=== PATIENT | female | born 1985 | race Caucasian/White ===

== ENCOUNTER 2025-06-08 16:39 | Emergency (ER) | payer OTHER, SELFPAY ==
--- OUTSIDE RECORDS SUMMARY | 2004-08-19 03:30 | XMS_ITS | Continuity of Care Document ---
Demographics Address [address] [place] [address] Work Phone Home Phone Preferred Language en Marital Status Never Temple Affiliation Unknown Race Unknown Ethnic Group Unknown Author Organization [facility] Address [address] [address] [place] [address] Phone Support Name Relationship Address Phone Elsie Gomez parent [address] [place] [address] [phone] Sumaya BROWN, Derek Reyes Caregiver Unknown Un available Care Team Providers Care Help Desk Coordinator Name Role Phone Unavailable Unavailable Unavailable Allergies, Adverse Reactions, Alerts Substance Reaction Status Criticality No Known allergies Advance Directives Directive Yes / No Effective Date File Name No Information Encounters Encounter Description Practice Location Reason(s) For Visit Diagnoses Date Provider Providers Copied on Encounter [facility], [address] [address], [place], [place], [id number], tel:[phone] Pediatric [facility] No Information No Information Referring Provider: Derek Shell MD A, [address] [place], [address]. tel:[phone] Family History Family Member Type Diagnosis Age At Onset No Information Payers Payer name Insurance type Covered alliance party ID Authoriza tion(s) Blue Cross [place] [id number] Social History Type Description Quantity Date Captured Comments Sex Female Smoking Status No Information Chief Complaint And Reason For Visit No Information Reason For Referral Reason For Referral No Information History Of Present Illness Encounter Date Complaint History Of Prese nt Illness No Information Functional Status Date Functional Assessmen t No Information Instructions Date Instruction Additional Infor mation No Information Assessments Type Assessment Date No Information Patient Care Teams Name Effective Dates (start - stop) Status Members No Information
--- OUTSIDE RECORDS SUMMARY | 2004-08-19 03:30 | XMS_ITS | Continuity of Care Document ---
Demographics Address [address] [place] [address] Work Phone Home Phone Preferred Language en Marital Status Never Sabianist Affiliation Unknown Race Unknown Ethnic Group Unknown Author Organization [facility] Address [address] [address] [place] [address] Phone Support Name Relationship Address Phone Elsie Gomez parent [address] [place] [address] [phone] Sumaya BROWN, Derek Reyes Caregiver Unknown Un available Care Team Providers Care Phone Screener Name Role Phone Unavailable Unavailable Unavailable Allergies, Adverse Reactions, Alerts Substance Reaction Status Criticality No Known allergies Advance Directives Directive Yes / No Effective Date File Name No Information Encounters Encounter Description Practice Location Reason(s) For Visit Diagnoses Date Provider Providers Copied on Encounter [facility], [address] [address], [place], [place], [id number], tel:[phone] Pediatric Clinic No Information No Information Referring Provider: Derek Shell MD A, [address] [place], [address]. tel:[phone] Family History Family Member Type Diagnosis Age At Onset No Information Payers Payer name Insurance type Covered democrat ID Authoriza tion(s) Blue Cross [place] [id number] Social History Type Description Quantity Date Captured [...]
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
--- OUTSIDE RECORDS SUMMARY | 2025-04-27 08:54 | XMS_ITS | Encounter Summary ---
Author Organization [facility] Address [address] [place] [address] Care Team Providers Care Bulk Station Operator Name Role Phone Marcello Turpin M.D. Primary Care Provider [phone] Encounter Details Date Type Department Care Team (Latest Contact Info) Description 04/27/2025 8:54 AM CDT - 04/27/2025 11:59 PM CDT Hospital Encounter Department of Laboratory Medicine in [place], [place] [address] [place] [phone] Marcello Turpin M.D. [address] [place] [phone] Elevated Liver Enzyme Test Discharge Disposition: Home or Self Care Social History Tobacco Use Types Packs/Day Years Used Date Smoking Tobacco: Former Cigarettes 1.5 Q uit: 06/23/2021 Smokeless Tobacco: Never Comments:1/2 cigarette a day , if that Alcohol Use Standard Drinks/Week Comments [...] money to buy more. Never true 04/23/20 Within the past 12 months, t he [...] things needed for daily living? No 04/23/2025 [facility] Utilities Answer Date Recorded In the past 12 months has e electric, gas, oil, or water company threatened to shut off services in your home? No 04/23/2025 Housing Stability Answer Date Recorded What is your living situation today? I have a [facility] place to live 04/23/2025 Education Answer Date Recorded What is the highest level of school you have completed or the highest degree you have received? GED or equivalent Comments Unknown Sex and Gender Information Value Date Recorded Sex Assigned at Female 04/24/2021 8:16 PM CDT Legal Sex Female 7:45 AM SCOURING TRAIN OPERATOR Gender Identity Female 10/16/2020 5:31 PM SCOURING TRAIN OPERATOR Sexual Orientation Straight 10/16/2020 5: 31 PM SCOURING TRAIN OPERATOR documented as of this encounter Medications at Time of Discharge tretinoin (Retin-A) 0.025 % cream Apply 1 Application topically at bedtime. Apply to face . 45 g 3 04/27/2025 acetaminophen (TYLENOL) 500 mg tablet Take 500-1,000 mg by mouth every 4 (four) hours as needed. 09/17/2021 albuterol 90 mcg/actuation inhaler Inhale 1-2 puffs every 4 (four) hours as needed. 03/08/2021 benzoyl peroxide 2.5 % gelIndications:A cne Vulgaris Apply 1 Application topically at bedtime. Apply to face daily 60 g 2 11/10/2024 clindamycin (Cleocin T) 1 % gelIndications:A cne Vulgaris Apply 1 Application topically 2 (two) times a day. Apply to face daily 60 g 2 11/10/2024 cyclobenzaprine (FlexeriL) 10 mg tablet Take 1 tablet (10 mg total) by mouth at bedtime as needed for muscle spasms. 30 tablet 1 04/27/2025 [id number] -C (MoviPrep) 100-7.5-2.691 gram kit Take first half of the prep at 4pm the evening before and start second half 3 to 6 hours before and finish 2 hours prior to report time. 1 kit 06/09/2024 5 documented as of this encounter Plan of Treatment Not on file documented as of this encounter Procedures Procedure Name Priority Date/Time Associated Diagnosis Comments COMPREHENSIVE METABOLIC PANEL, S/P Routine 04/27/2025 9:01 AM CDT Elevated Liver Enzyme Test documented in this encounter Results * (ABNORMAL) Comprehensive Metabolic Panel (04/27/2025 9:01 AM CDT) Pathologist [facility] Potassium, P 4.5 3.6 - 5.2 mmol/L [...] M.D. LAB BLOOD ADD-ON Final Resul t [facility] [address] [place] [address], [place] OW[facility] [place] [address] [place] [address] documented in this encounter Visit Diagnoses Diagnosis Elevated Liver Enzyme Test documented in this encounter Additional Health Concerns Assessment Noted Time PHQ-9 Depression Total Score: 19 017 10:57 AM SCOURING TRAIN OPERATOR documented as of this encounter Care Teams Bulk Station Operator Relationship Specialty Start Date End Date Marcello Turpin M.D. NPHeather: [id number] [address] [place] [address] [place] [address] PCP - General Family Medicine 12/07/22 documented as of this encounter
--- OUTSIDE RECORDS SUMMARY | 2025-06-04 16:00 | XMS_ITS | Encounter Summary ---
Author Organization [facility] Address [address] [place] [address] Support Name Relationship Address Phone Lalo Biswas Emergency Contact [address] [place] [address] Clesherron Gomez Personal Relationship [address] [place] [address] Care Team Providers Care Head Of Sales And Marketing Name Role Phone Marcello Turpin M.D. Primary Care Provider Reason for Referral * Outpatient (Routine) - Closed Specialty Diagnoses / Procedures Referred By Contac t Referred To Contact Diagnoses Counseling Preconception Mass Ovary Procedures US Pelvis Transvaginal and Transabdominal Josefina Reeder APRN, C.N.P. [address] [place] [address] Phone: tel: fax: [facility] Region Referral ID Status Reason Start Date Expiration Date Visits Re quested Visits Authorized [id number] Closed 06/04/2025 09/04/2026 1 1 * Outpatient (Routine) - Authorized Specialty Diagnoses / Procedures Referred By Contac t Referred To Contact Obstetrics and Gynecology Diagnoses Preventive Gynecological Exam Josefina Reeder APRN, C.N.P. [address] [place] [address] Phone: tel: fax: [facility] Region Referral ID Status Reason Start Date Expiration Date V isits Requested Visits Authorized [id number] Authorized 06/04/2025 12/04/2026 1 1 Scheduling Instructions 30 min WWE Reason for Visit * Reason Comments Contraception Family planning Gynecologic Exam Yearly exam * Outpatient (Routine) - Closed Specialty Diagnoses / Procedures Referred By Contdonavon t Referred To Contact Obstetrics and Gynecology Diagnoses Preventive Gynecological Exam Marcello Turpin M.D. [address] [place] [phone] Phone: tel: fax: [facility] Referral ID Status Reason Start Date Expiration Date Visits Re quested Visits Authorized [id number] Closed 04/27/2025 10/27/2026 1 1 Encounter Details Date Type Department Care Team (Latest Contact Info) Description 06/04/2025 4:00 PM CDT Comprehensive Visit Department of Obstetrics and Gynecology in [place], [place] [address] [phone] Josefina Reeder APRN, C.N.P. [address] [phone] Preventive Gynecological Exam (Primary Dx); Abuse Tobacco Smoking; Aneurysm Abdominal Aortic Family History; Counseling Preconception; Mass Ovary; Ulcerative Colitis Unspecified Without Complications (HCC) Discharge Disposition: Home or Self Care Social History Tobacco Use Types Packs/Day Years Used Date Smoking Tobacco: Former Cigarettes 1.5 Q uit: 06/23/2021 Smokeless Tobacco: Never Alcohol Use Standard Drinks/Week Comments Yes 0 [...] things needed for daily living? No 04/23/2025 [facility] Utilities Answer Date Recorded In the past 12 months has [employer] electric, gas, oil, or water company threatened to shut off services in your home? No 04/23/2025 Housing Stability Answer Date Recorded What is your living situation today? I have a [facility] place to live 04/23/2025 Education Answer Date Recorded What is the highest level of school you have completed or the highest degree you have received? GED or equivalent Comments No Sex and Gender Information Value Date Recorded Sex Assigned at Female 04/24/2021 8:16 PM CDT Legal Sex Female 7:45 AM COMPONENT TECHNICIAN Gender Identity Female 10/16/2020 5:31 PM COMPONENT TECHNICIAN Sexual Orientation Straight 10/16/2020 5: 31 PM COMPONENT TECHNICIAN documented as of this encounter Last Filed Vital Signs Vital Sign Reading Time Taken Comments Blood Pressure 119/80 06/04/2025 3:40 PM CDT Pulse 75 06/04/2025 3:40 PM CDT Temperature - - Respiratory Rate - - Oxygen Saturation - - Inhaled Oxygen Concentration - - Weight 70 kg (154 lb 5.2 oz) 06/04/2025 3:40 PM CDT Height - - Body Mass Index 27.69 04/27/2025 8:18 AM CDT documented in this encounter Patient Instructions * Attachments The following attachments cannot be sent through Care Everywhere. * Planning documented in this encounter H&P Notes * Josefina Reeder APRN, C.N.P. - 06/04/2025 4:00 PM CDT Images from the original note were not included. DATE OF VISIT: 06/04/2025 SUBJECTIVE CHIEF COMPLAINT / REASON FOR VISIT Nettie Biswas is a 39 y.o. female who presents for evaluation of Contraception (Family planning ) and Gynecologic Exam (Yearly exam ). Patient's last menstrual period was 04/10/2025. The patient verbally consented to an audio recording of their visit to assist with the completion of documentation. History of Present Illness Mrs. Nettie Biswas is a 39 year old female who presents for a well woman exam and preconception counseling. She recently got and her , who previously had a vasectomy, is scheduled for a vasectomy reversal on August 24. She is not currently on control and has regular menstrual periods. She has not used ovulation predictor tests and is hoping to conceive naturally without in vitro fe rtilization. She has a history of very early, probable ovarian cancer in 2019, for which she underwent oral chemotherapy. She retains both ovaries. She reports no problems with her ovary since that time. She did have a normal CT of the abdomen and pelvis on 12/06/2022. She has a past medical history of ulcerative colitis, which she experienced in her youth but reports it has since resolved. Her twin sister has ulcerative colitis and Crohn's disease. She acknowledges the need for a colonoscopy, which was last performed in the late . She has a family history of aneurysms and has undergone testing, which was normal. She is vigilant about monitoring this condition due to its prevalence in her family. She is currently vaping and aims to quit, especially in light of her plans to conceive. She has a history of smoking half a cigarette per day, but no longer smokes cigarettes. She rarely consumes alcohol and has a history of marijuana and methamphetamine use, but has been sober for almost seven years. She has had three term pregnancies and one loss. Her last in 2013 was complicated by preeclampsia, but all her children were delivered vaginally and at full term. She does have history of chlamydia on a couple of different occasions over the years. She is agreeable to proceeding with gonorrhea and chlamydia screening today. She does have history of a LEEP procedure performed in 2010. Pap smears have been normal since thattime with her most recent Pap smear performed 07/29/2023 with normal cytology and negative Human Papilloma Virus findings. She reports experiencing neck pain since a week before her wedding in March, which has been managed with physical therapy. The pain varies in location and intensity, sometimes affecting her hands and toes. She sees a therapist twice a month for emotional support, particularly after experiencing depression following her mother's three years ago. She is not on any mood-related medications. OB History 4 Para 3 Term 3 AB 1 Living 3 SAB IAB 1 Ectopic Molar Multiple Live Births 3 REVIEW OF SYSTEMS Musculoskeletal: Positive for back pain and muscle pain/stiffness. The following systems were negative: Constitutional, Skin, Eyes, ENT, Respiratory, Cardiovascular, Gastrointestinal, Genitourinary, Hematologic, Neurological, Psychiatric The patient's allergies, current medications, problem list, family and social history were reviewedand updated as appropriate. PREVENTATIVE HEALTH Last Pap Result Date: 08/04/2023 NILM/-HPV. Hx LEEP in 2010. Depression: PHQ 2 score of 0 today. 06/23/2017 10:57 AM PHQ9 Score PHQ-9 Total Score (max 27) 19 Data saved with a previous flowsheet row definition Immunization History Administered Date(s) Administered DTaP (Infanrix, [employer]) 1986, 01/18/1987, 04/01/1987, 04/03/1988, 02/12/1992 HepB Adult (HEPLISAV-B) 06/09/2024 HepB, Unspecified 06/21/2001 IG 10/27/2005 MMR 12/23/1987, 11/26/1998 MMRV 11/29/1998 Polio, Unspecified 1986, 01/18/1987, 04/01/1987, 04/03/1988, 02/12/1992 Td (Adult), adsorbed 11/29/1998 Tdap 08/20/2010, 04/10/2020 influenza trivalent vaccine (6 months and older)(PF) 06/04/2025 OBJECTIVE VITAL SIGNS BP 119/80 (BP Location: Left arm, Patient Position: Sitting, Cuff Size: Regular) Pulse 75 Wt 70kg LMP 04/10/2025 BMI 27.69 kg/m?? PHYSICAL EXAM General: She is a well-appearing female, in no acute distress. SKIN: Warm, dry and pink. No rashes, lesions or bruising. HEENT: Vision and hearing grossly intact. Lymph Nodes: No cervical, axillary, or inguinal lymphadenopathy. No masses or tenderness. Thyroid: No thyromegaly. No tenderness to palpation. Breasts: Symmetrical. No lesions or dimpling of the skin noted. No dominant masses palpable. Nipples without inversion or drainage. Heart: Regular rate and rhythm. No murmurs, rubs, or gallops. Lungs: Breathing nonlabored. Lungs clear to auscultation bilaterally. No wheezes or rales. Abdomen: Soft, nontender, nondistended. No masses palpable. Pelvis: External genitalia appears healthy and normal. BUS is negative. Upon speculum exam vaginal mucosa appears pink and intact. Cervix is visualized, appears pink and intact. GC chlamydia swab obtained. Extremities: Lower extremities are nontender. No edema. Gait normal. Mental: Alert and oriented x3. Affect pleasant. Mood happy. Concrete Batching Plant Operator: Concrete Batching Plant Operator for pelvic exam or qualifying procedure: Emilee Salgado, GermanP.N. ASSESSMENT/ PLAN Preventive Gynecological Exam Pap smear: 07/29/2023 NILM/-HPV. History of LEEP in 2010. Due 2025. Gonorrhea/Chlamydia Screen: 06/04/2025 Obtained and pending. Mammogram: Start at age 41. Lipid panel: 06/09/2024 with mild triglyceride elevation and low HDL. Diabetic screenin06/09/2024 with elevated fasting glucose of 105. Colon screening: History of UC. Colonoscopy ordered by PCP. DEXA Scan: Begin at age 66. HPV Vaccine: Declined at this time. General Health Maintenance She is current on flu and tetanus vaccinations. Her last Pap smear was in 2022, with the next due between 5371-9515. Testing for chlamydia and gonorrhea is recommended due to past chlamydia infectionand potential impact on fallopian tube patency. - Perform chlamydia and gonorrhea testing - Monitor cholesterol levels in a couple of years - I will plan to portal message with results. Orders: Chlamydia / Gonorrhoeae Amplified RNA Obstetrics and Gynecology office visit (clinic); Future Abuse Tobacco Smoking Tobacco Use She is currently vaping and intends to quit, which is crucial for preconception health. She no longer smokes cigarettes. - Encourage cessation of vaping before Aneurysm Abdominal Aortic Family History She has been provided with reassurance that screening findings have been negative to date. Counseling Preconception Preconception Counseling She plans to conceive naturally following her 's vasectomy reversal scheduled for August 24. Regular menstrual cycles indicate positive fertility potential. Despite a history of ovarian cancer, she retains both ovaries without chemotherapy-induced menopause. She is not interested in IVF due to emotional, physical, and financial concerns. Ovulation confirmation is crucial, and further testing may be needed if conception does not occur within six months due to her age. - Order CA-125 test - Schedule pelvic ultrasound - Recommend at-home ovulation predictor kits - Discuss potential for hormone testing if conception does not occur within six months Orders: Angela Score (Ovarian Malignancy Risk Algorithm); Future US Pelvis Transvaginal and Transabdominal; Future Mass Ovary Ovarian Cancer Surveillance She underwent mass removal and chemotherapy for ovarian cancer, retaining both ovaries. Continued monitoring is essential for reproductive health. - Order ANGELA score - Schedule pelvic ultrasound Orders: Angela Score (Ovarian Malignancy Risk Algorithm); Future US Pelvis Transvaginal and Transabdominal; Future Ulcerative Colitis Unspecified Without Complications (HCC) Ulcerative Colitis Surveillance Her ulcerative colitis resolved spontaneously. With a family history of Crohn's disease and no colonoscopy since 0501-4863, a colonoscopy is recommended to ensure gastrointestinal health before . - Schedule colonoscopy All questions have been answered and those present are in agreement with this plan. Josefina Reeder APRN, C.N.P. Patient Education Ready to learn, no apparent learning barriers were identified; learning preferences include listening. Explained diagnosis and treatment plan; patient expressed understanding of the content. documented in this encounter Miscellaneous Notes * Assessment & Plan Note - Josefina Reeder APRN, C.N.P. - 06/04/2025 4:00 PM CDTAssociated Problem(s): Preventive Gynecological Exam Pap smear: 07/29/2023 NILM/-HPV. History of LEEP in 2010. Due 2025. Gonorrhea/Chlamydia Screen: 06/04/2025 Obtained and pending. Mammogram: Start at age 41. Lipid panel: 06/09/2024 with mild triglyceride elevation and low HDL. Diabetic screenin06/09/2024 with elevated fasting glucose of 105. Colon screening: History of UC. Colonoscopy ordered by PCP. DEXA Scan: Begin at age 66. HPV Vaccine: Declined at this time. General Health Maintenance She is current on flu and tetanus vaccinations. Her last Pap smear was in 2022, with the next due between 5951-9313. Testing for chlamydia and gonorrhea is recommended due to past chlamydia infectionand potential impact on fallopian tube patency. - Perform chlamydia and gonorrhea testing - Monitor cholesterol levels in a couple of years - I will plan to portal message with results. Orders: Chlamydia / Gonorrhoeae Amplified RNA Obstetrics and Gynecology office visit (clinic); Future * Assessment & Plan Note - Josefina Reeder APRN, C.N.P. - 06/04/2025 4:00 PM CDTAssociated Problem(s): Abuse Tobacco Smoking Tobacco Use She is currently vaping and intends to quit, which is crucial for preconception health. She no longer smokes cigarettes. - Encourage cessation of vaping before * Assessment & Plan Note - Josefina Reeder APRN, C.N.P. - 06/04/2025 4:00 PM CDTAssociated Problem(s): Aneurysm Abdominal Aortic Family History She has been provided with reassurance that screening findings have been negative to date. * Assessment & Plan Note - Josefina Reeder APRN, C.N.P. - 06/04/2025 4:00 PM CDTAssociated Problem(s): Mass Ovary Ovarian Cancer Surveillance She underwent mass removal and chemotherapy for ovarian cancer, retaining both ovaries. Continued monitoring is essential for reproductive health. - Order ANGELA score - Schedule pelvic ultrasound Orders: Angela Score (Ovarian Malignancy Risk Algorithm); Future US Pelvis Transvaginal and Transabdominal; Future * Assessment & Plan Note - Josefina Reeder APRN, C.N.P. - 06/04/2025 4:00 PM CDTAssociated Problem(s): Ulcerative Colitis Unspecified Without Complications (HCC) Ulcerative Colitis Surveillance Her ulcerative colitis resolved spontaneously. With a family history of Crohn's disease and no colonoscopy since 8485-1770, a colonoscopy is recommended to ensure gastrointestinal health before . - Schedule colonoscopy documented in this encounter Plan of Treatment Scheduled Referrals Name Type Priority Associated Diagnoses Orde r Schedule Obstetrics and Gynecology office visit (clinic) Outpatient Referral Routine Preventive Gynecological Exam Expected: 06/04/2026, Expires: 09/04/2026 documented as of this encounter Procedures Procedure Name Priority Date/Time Associated Diagnosis Comments CHLAMYDIA/GONORRHO EAE AMPLIFIED RNA Routine 06/04/2025 4:16 PM CDT Preventive Gynecological Exam documented in this encounter Results * US Pelvis Transvaginal and Transabdominal (06/07/2025 1:20 PM CDT) Anatomical Region Laterality Modality Pelvis, Ultrasound RST LOS, Ultrasound ARZ LOS, Ultrasound FLA LOS N/A Ultrasound Impressions 06/07/2025 1:42 PM CDT 13 mm endometrial stripe thickness. Small amount of fluid within the endometrial canal at the fundus. Narrative 06/07/2025 1:42 PM CDT EXAM: US PELVIS TRANSVAGINAL AND TRANSABDOMINAL COMPARISON: TECHNIQUE: Transabdominal and transvaginal. Transvaginal exam performed to better visualize the uterus and/or adnexal regions. FINDINGS: Uterus: 4.9 cm x 5.7 cm x 9.3 cm. Myometrium: Normal. Endometrium: 13 mm endometrial stripe thickness. Small amount of fluid within the endometrial canal at the fundus. Right ovary: Slightly heterogeneous, but no discrete suspicious pulmonary mass lesion identified. Ovarian volume: 9 ml. Left ovary: Normal. Ovarian volume: 3 ml. Intraperitoneal Fluid: None. Mildly prominent periuterine vasculature. Procedure Note Tomy Angela M.D. - 06/07/2025 EXAM: US PELVIS TRANSVAGINAL AND TRANSABDOMINAL COMPARISON: TECHNIQUE: Transabdominal and transvaginal. Transvaginal exam performed tobetter visualize the uterus and/or adnexal regions. FINDINGS: Uterus: 4.9 cm x 5.7 cm x 9.3 cm. Myometrium: Normal. Endometrium: 13 mm endometrial stripe thickness. Small amount of fluidwithin the endometrial canal at the fundus. Right ovary: Slightly heterogeneous, but no discrete suspicious pulmonarymass lesion identified. Ovarian volume: 9 ml. Left ovary: Normal. Ovarian volume: 3 ml. Intraperitoneal Fluid: None. Mildly prominent periuterine vasculature. IMPRESSION: 13 mm endometrial stripe thickness. Small amount of fluid within theendometrial canal at the fundus. us Josefina Reeder APRN, C.N.P. IMG US PROCEDURES Final Result * Angela Score (Ovarian Malignancy Risk Algorithm) (06/04/2025 4:33 PM CDT) HE4,S 43 <=140 pmol/L 06/05/2025 8:47 AM CDT [facility] Cancer Ag 125 (CA 125), S 19 <46 U/mL 06/05/2025 8:47 AM CDT [facility] Risk Score, if premenopausal 0.54 06/05/2025 8:47 AM CDT [facility] Comment: In premenopausal women a ANGELA value > or = 1.14 indicates a high risk of finding epithelial ovarian cancer whereas a ANGELA value < 1.14 indicates a low risk of finding epithelial ovarian cancer at surgery. ----REFERENCE VALUE---- Premenopausal: < 1.14 (low risk) = or > 1.14 (high risk) Risk Score, if postmenopausal 1.17 06/05/2025 8:47 AM CDT [facility] Comment: In postmenopausal women a ANGELA value > or = 2.99 indicates a high risk of finding epithelial ovarian cancer whereas a ANGELA value < 2.99 indicates a low risk of finding epithelial ovarian cancer at surgery. ----REFERENCE VALUE---- Postmenopausal: < 2.99 (low risk) = or > 2.99 (high risk) ----ADDITIONAL INFORMATION---- The testing method is an electrochemiluminescence assay manufactured by [employer] and performed on the [employer] system. Values obtained with different assay methods or kits may be different and cannot be used interchangeably. Test results cannot be interpreted as absolute evidence for the presence or absence of malignant disease. Blood (Blood, Venous) 06/04/2025 4:33 PM CDT 06/05/2025 8:02 AM CDT Josefina Reeder APRN, C.N.P. LAB BLOOD ADD-ON Final Result Performing Organization Address City/State/[facility] Co de Phone Number [facility] [address] [place], [place] [id number] [place] [address] [place] [address] * Chlamydia / Gonorrhoeae Amplified RNA (06/04/2025 4:16 PM CDT) Source Swab, Vagina 06/04/2025 11:16 PM CDT [facility] Chlamydia trachomatis amplified RNA Negative Negative 06/04/2025 11:16 PM CDT [facility] Source Swab, Vagina 06/04/2025 11:16 PM CDT [facility] Neisseria gonorrhoeae amplified RNA Negative Negative 06/04/2025 11:16 PM CDT [facility] Swab (Vagina) 06/04/2025 4:1 6 PM CDT 06/04/2025 6:53 PM CDT Josefina Reeder APRN, C.N.P. LAB MICROBIOLOGY - GENERAL ORDERABLES Final Result [facility] [address] [place] [address], [facility] [address] [facility] [address] [place] [address] documented in this encounter Visit Diagnoses Diagnosis Preventive Gynecological Exam- Primary Abuse Tobacco Smoking Aneurysm Abdominal Aortic Family History Counseling Preconception Mass Ovary Ulcerative Colitis Unspecified Without Complications (HCC) Counseling Preconception Mass Ovary documented in this encounter Additional Health Concerns Assessment Noted Time PHQ-9 Depression Total Score: 19 017 10:57 AM COMPONENT TECHNICIAN documented as of this encounter Care Teams Head Of Sales And Marketing Relationship Specialty Start Date End Date Marcello Turpin M.D. [address] [place] [phone] PCP - General Family Medicine 12/07/22 documented as of this encounter
--- OUTSIDE RECORDS SUMMARY | 2025-06-04 16:22 | XMS_ITS | Encounter Summary ---
Author Organization [facility] Address [address] [place] [address] Support Name Relationship Address Phone Lalo Biswas Emergency Contact [address] [place] [address] Val Gomez Personal Relationship 0786 15 08/10 [place] [address] Care Team Providers Care Plain Clothes Police Officer Name Role Phone Marcello Turpin M.D. Primary Care Provider Encounter Details Date Type Department Care Team (Latest Contact Info) Description 06/04/2025 4:22 PM CDT - 06/04/2025 11:59 PM CDT Hospital Encounter Department of Laboratory Medicine in [place], [place] [address] [phone] Josefina Reeder, TYPE PROOF REPRODUCER, C.N.P. [address] [phone] Counseling Preconception; Mass Ovary Discharge Disposition: Home or Self Care Social [...] things needed for daily living? No 04/23/2025 [facility] Utilities Answer Date Recorded In the past 12 months has e electric, gas, oil, or water company threatened to shut off services in your home? No 04/23/2025 Housing Stability Answer Date Recorded What is your living situation today? [facility] 04/23/2025 Education Answer Date Recorded What is the highest level of school you have completed or the highest degree you have received? GED or equivalent Comments No Sex and Gender Information Value Date Recorded Sex Assigned at Female 04/24/2021 8:16 PM CDT Legal Sex Female 7:45 AM PATIENT SAFETY ATTENDANT Gender Identity Female 10/16/2020 5:31 PM PATIENT SAFETY ATTENDANT Sexual Orientation Straight 10/16/2020 5: 31 PM PATIENT SAFETY ATTENDANT documented as of this encounter Medications at Time of Discharge tretinoin (Retin-A) 0.025 % cream Apply 1 Application topically at bedtime. Apply to face . 45 g 3 04/27/2025 documented as of this encounter Plan of Treatment Not on file documented as of this encounter Procedures Procedure Name Priority Date/Time Associated Diagnosis Comments ASHLEY SCORE Routine 06/04/2025 4:33 PM CDT Counseling Preconception Mass Ovary documented in this encounter Results * [place] Score (Ovarian Malignancy Risk Algorithm) (06/04/2025 4:33 PM CDT) HE4,S 43 <=140 pmol/L 06/05/2025 8:47 AM CDT [facility] Cancer Ag 125 (CA 125), S 19 <46 U/mL 06/05/2025 8:47 AM CDT [facility] Risk Score, if premenopausal 0.54 06/05/2025 8:47 AM T [facility] Comment: In premenopausal women a ASHLEY value > or = 1.14 indicates a high risk of finding epithelial ovarian cancer whereas a ASHLEY value < 1.14 indicates a low risk of finding epithelial ovarian cancer at surgery. ----REFERENCE VALUE---- Premenopausal: < 1.14 (low risk) = or > 1.14 (high risk) Risk Score, if postmenopausal 1.17 06/05/2025 8:47 AM CDT [facility] Comment: In postmenopausal women a ASHLEY value > or = 2.99 indicates a high risk of finding epithelial ovarian cancer whereas a ASHLEY value < 2.99 indicates a low risk [...] 4:33 PM CDT 06/05/2025 8:02 AM CDT us Josefina Reeder APRN, C.N.P. LAB BLOOD ADD-ON Final Result [facility] [address] [id number] [facility] [address] [id number] documented in this encounter Visit Diagnoses Diagnosis Counseling Preconception Mass Ovary documented in this encounter Additional Health Concerns Assessment Noted Time PHQ-9 Depression Total Score: 19 017 10:57 AM PATIENT SAFETY ATTENDANT documented as of this encounter Care Teams Plain Clothes Police Officer Relationship Specialty Start Date End Date Marcello Turpin M.D. [address] [place], [place] [address] [phone] PCP - General Family Medicine 12/07/22 documented as of this encounter
--- OUTSIDE RECORDS SUMMARY | 2025-06-07 12:53 | XMS_ITS | Encounter Summary ---
Author Organization [facility] Address [address] [place] [address] Care Team Providers Care Ambulatory Nurse Name Role Phone Marcello Turpin M.D. Primary Care Provider Reason for Referral * Outpatient (Routine) - Closed Specialty Diagnoses / Procedures Referred By Contac t Referred To Contact Diagnoses Counseling Preconception Mass Ovary Procedures US Pelvis Transvaginal and Transabdominal Josefina Reeder APRN, C.N.P. [address] [phone] Phone: tel: fax: [facility] Referral ID Status Reason Start Date Expiration Date Visits Re quested Visits Authorized [id number] Closed 06/04/2025 09/04/2026 1 1 Reason for Visit * Outpatient (Routine) - Closed Specialty Diagnoses / Procedures Referred By Contac t Referred To Contact Diagnoses Counseling Preconception Mass Ovary Procedures US Pelvis Transvaginal and Transabdominal Josefina Reeder APRN, C.N.P. [address] [phone] Phone: tel: fax: [facility] Region Referral ID Status Reason Start Date Expiration Date Visits Re quested Visits Authorized [id number] Closed 06/04/2025 09/04/2026 1 1 Encounter Details Date Type Department Care Team (Latest Contact Info) Description 06/07/2025 12:53 PM CDT - 06/07/2025 11:59 PM CDT Hospital Encounter Department of Radiology in [place], [place] [address] [place] [phone] Josefina Reeder, ZAIRE, C.N.P. [address] [place] [phone] Counseling Preconception; Mass Ovary Discharge Disposition: Home [...] things needed for daily living? No 04/23/2025 [facility] Utilities Answer Date Recorded In the past 12 months has th e electric, gas, oil, or water company threatened to shut off services in your home? No 04/23/2025 Housing Stability Answer Date Recorded What is your living situation today? [facility] 04/23/2025 Education Answer Date Recorded What is the highest level of school you have completed or the highest degree you have received? GED or equivalent Comments No Sex and Gender Information Value Date Recorded Sex Assigned at Female 04/24/2021 8:16 PM CDT Legal Sex Female 7:45 AM LEAK INSPECTOR Gender Identity Female 10/16/2020 5:31 PM LEAK INSPECTOR Sexual Orientation Straight 10/16/2020 5: 31 PM LEAK INSPECTOR documented as of this encounter Medications at Time of Discharge tretinoin (Retin-A) 0.025 % cream Apply 1 Application topically at bedtime. Apply to face . 45 g 3 04/27/2025 documented as of this encounter Plan of Treatment Not on file documented as of this encounter Procedures Procedure Name Priority Date/Time Associated Diagnosis Comments US PELVIS TRANSVAGINAL AND TRANSABDOMINAL RAD - Routine (most inpatients and all outpatients) 06/07/2025 1:20 PM CDT Counseling Preconception Mass Ovary documented in this encounter Results * US [...] APRN, C.N.P. IMG US PROCEDURES Final Result documented in this encounter Visit Diagnoses Diagnosis Counseling Preconception Mass Ovary documented in this encounter Additional Health Concerns Assessment Noted Time PHQ-9 Depression Total Score: 19 017 10:57 AM LEAK INSPECTOR documented as of this encounter Care Teams Ambulatory Nurse Relationship Specialty Start Date End Date Marcello Turpin M.D. [address] [place] [phone] PCP - General Family Medicine 12/07/22 documented as of this encounter
--- OUTSIDE RECORDS SUMMARY | 2025-06-08 16:41 | XMS_ITS | Encounter Summary ---
Author Organization [facility] Address [address] [place] [address] Care Team Providers Care Supervisor [employer] Name Role Phone Marcello Turpin M.D. Primary Care Provider Encounter Details Date Type Department Care Team (Latest Contact Info) Description 04/27/2025 Results Follow-Up Department of Family Medicine, [facility], in [place], [place] [address] [place] [phone] Kenia Mora, RTriN. Comprehensive Metabolic Panel Social History Tobacco Use Types Packs/Day Years [...] things needed for daily living? No 04/23/2025 [facility] Utilities Answer Date Recorded In the past 12 months has [employer] electric, gas, oil, or water [employer] threatened to shut off services in your home? No 04/23/2025 Housing Stability Answer Date Recorded What is your living situation today? I have a [facility] place to live 04/23/2025 Education Answer Date Recorded What is the highest level of school you have completed or the highest degree you have received? GED or equivalent Comments Unknown Sex and Gender Information Value Date Recorded Sex Assigned at Female 04/24/2021 8:16 PM CDT Legal Sex Female 7:45 AM CHIEF LEARNING OFFICER Gender Identity Female 10/16/2020 5:31 PM CHIEF LEARNING OFFICER Sexual Orientation Straight 10/16/2020 5: 31 PM CHIEF LEARNING OFFICER documented as of this encounter Plan of Treatment Not on file documented as of this encounter Visit Diagnoses Not on filedocumented in this encounter Additional Health Concerns Assessment Noted Time PHQ-9 Depression Total Score: 19 017 10:57 AM CHIEF LEARNING OFFICER documented as of this encounter Care Teams Supervisor [employer] Relationship Specialty Start Date End Date Marcello Turpin M.D. [address] [place] [address] [place] [phone] PCP - General Family Medicine 12/07/22 documented as of this encounter
--- OUTSIDE RECORDS SUMMARY | 2025-06-08 16:41 | XMS_ITS | Clinical Summary ---
Author Organization [facility] Address [address] [place] [address] Support Name Relationship Address Phone Lalo Biswas Emergency Contact [address] [place] [address] Val Melo Personal Relationship [address] [place] [address] Care Team Providers Care Establishment Guide Name Role Phone Marcello Turpin M.D. Primary Care Provider [phone] Source Comments Patient records contain information from all sites at [facility]. For routine questions regarding patient records, call [phone] during business hours, M-F 8:00 AM - 5:00 PM Central Time. Record requests for emergency care only can be directed to [phone] at any time.[facility] Allergies Active Allergy Reactions Criticality Noted Date Comments No Known Allergies Other (see comments) 012 Cerner jr no reactions [place] Hives (Reselect Reaction) 04/01/2015 Tuberculin Ppd Other (see comments) 02/11/2010 Positive PPD in the past chest X-ray only Medications * This document contains information received from the source organization and may not represent a complete record from that organization. tretinoin (Retin-A) 0.025 % cream Apply 1 Application topically at bedtime. Apply to face . 45 g 3 04/27/20 25 Active albuterol 90 mcg/actuation inhaler Inhale 1-2 puffs every 4 (four) hours as needed. 03/08/20 21 025 Discontinued acetaminophen (TYLENOL) 500 mg tablet Take 500-1,000 mg by mouth every 4 (four) hours as needed. 09/17/19 22 Discontinued [id number] sb-C (MoviPrep) 100-7.5-2.691 gram kit Take first half of the prep at 4pm the evening before and start second half 3 to 6 hours before and finish 2 hours prior to report time. 1 kit 06/09/20 24 025 Discontinued clindamycin (Cleocin T) 1 % gelIndications :Acne Vulgaris Apply 1 Application topically 2 (two) times a day. Apply to face daily 60 g 2 11/11/19 Discontinued benzoyl peroxide 2.5 % gelIndications :Acne Vulgaris Apply 1 Application topically at bedtime. Apply to face daily 60 g 2 11/11/19 Discontinued cyclobenzaprin e (FlexeriL) 10 mg tablet Take 1 tablet (10 mg total) by mouth at bedtime as needed for muscle spasms. 30 tablet 1 04/27/20 Discontinued Active Problems Problem Noted Date Diagnosed Date Asthma Mild Intermittent 04/27/2025 Assessment & Plan (04/27/2025 9:44 AM CDT): Stable on albuterol as needed Mass Ovary 07/29/2023 Overview (06/04/2025): She appears to have history of suspected ovarian cancer. Imaging noted mass and ascites back in 2019, and CA 125 was elevated. She notes that symptoms spontaneously subsided with oral chemotherapy. For surveillance purposes will obtain a pelvic ultrasound and Ashley score at this time. I will plan to portal message her with those results. Assessment & Plan (06/04/2025 4:31 PM CDT): Ovarian Cancer Surveillance She underwent mass removal and chemotherapy for ovarian cancer, retaining both ovaries. Continued monitoring is essential for reproductive health. - Order ASHLEY score - Schedule pelvic ultrasound Orders: Westfir Score (Ovarian Malignancy Risk Algorithm); Future US Pelvis Transvaginal and Transabdominal; Future Aneurysm Abdominal Aortic Family History 023 Overview (06/04/2025): History of aortic aneurysm in her maternal grandmother and mother. Her mom secondary to aortic dissection. Completed testing and has no current disease. Assessment & Plan (06/04/2025 4:31 PM CDT): She has been provided with reassurance that screening findings have been negative to date. Preventive Gynecological Exam 07/28/2023 Overview (06/04/2025): Pap smear: 07/29/2023 NILM/-HPV. History of LEEP in 2010. Due 2025. Gonorrhea/Chlamydia Screen: 06/04/2025 Obtained and pending. Mammogram: Start at age 41. Lipid panel: 06/09/2024 with mild triglyceride elevation and low HDL. Diabetic screenin06/09/2024 with elevated fasting glucose of 105. Colon screening: History of UC. Colonoscopy ordered by PCP. DEXA Scan: Begin at age 66. HPV Vaccine: Declined at this time. Tdap Vaccine: 04/10/2020. Due 2029. Influenza Vaccine: 06/04/2025. Assessment & Plan (06/04/2025 4:31 PM CDT): Pap smear: 07/29/2023 NILM/-HPV. History of LEEP [...] in 2022, with the next due between 6947-6777. Testing for chlamydia and gonorrhea is recommended due to past chlamydia infection and potential impact on fallopian tube patency. - Perform chlamydia and gonorrhea testing - Monitor cholesterol levels in a couple of years - I will plan to portal message with results. Orders: Chlamydia / Gonorrhoeae Amplified RNA Obstetrics and Gynecology office visit (clinic); Future Assessment & Plan (04/27/2025 9:44 AM CDT): Orders: Obstetrics and Gynecology - Gynecology consult (clinic); Future Patient requested referral to OBGYN to discuss general health. Assessment & Plan (07/28/2023 2:39 PM COPPER PLATE LITHOGRAPHER): Discussed exam findings. I will plan to send her a portal message with results when I receive them. Recommend she return in 1 year for her annual preventative health exam or sooner if she is any concerns or problems. Alcohol And Substance Use Disorder NOS 7 Borderline Personality Disorder 06/23/2017 Assessment & Plan (04/27/2025 9:44 AM CDT): Stable Anxiety Generalized Disorder 06/23/2017 Adjustment Disorder With Depressed Mood 12/05/19 10 Ulcerative Colitis Unspecified Without Complicat ions 07/07/2006 Overview (06/04/2025): Currently asymptomatic. Colonoscopy is due for surveillance and has been scheduled by her PCP. Assessment & Plan (06/04/2025 4:31 PM CDT): Ulcerative Colitis Surveillance Her ulcerative colitis resolved spontaneously. With a family history of Crohn's disease and no colonoscopy since 8750-0993, a colonoscopy is recommended to ensure gastrointestinal health before . - Schedule colonoscopy Assessment & Plan (04/27/2025 9:44 AM CDT): Nettie has several follow-up plans including a colonoscopy and a gastroenterology appointment. The importance of these follow-ups for her ongoing health management was emphasized. Abuse Tobacco Smoking 06/09/2005 Overview (06/04/2025): Uses a vape. She is working towards quitting. Assessment & Plan (06/04/2025 4:31 PM CDT): Tobacco Use She is currently vaping and intends to quit, which is crucial for preconception health. She no longer smokes cigarettes. - Encourage cessation of vaping before Resolved Problems Problem Noted Date Diagnosed Date Resolved Date Asthma 07/07/2006 11/26/2017 Encounters Date Type Department Care Team Description 06/07/2025 12:53 PM CDT - 06/07/2025 11:59 PM CDT Hospital Encounter Department of Radiology in [address] [phone] Josefina Reeder APRN, C.N.P. Counseling Preconception; Mass Ovary Discharge Disposition: Home or Self Care 06/05/2025 Results Follow-Up Department of Obstetrics and Gynecology in [place], [place] [address] [place] [phone] Josefina Reeder APRN, C.N.P. Chlamydia / Gonorrhoeae Amplified RNA, Ashley Score (Ovarian Malignancy Risk Algorithm) 06/04/2025 4:22 PM CDT - 06/04/2025 11:59 PM CDT Hospital Encounter Department of Laboratory Medicine in [address] [phone] Josefina Reeder APRN, C.N.P. Counseling Preconception; Mass Ovary Discharge Disposition: Home or Self Care 06/04/2025 4:00 PM CDT Comprehensive Visit Department of Obstetrics and Gynecology in [address] [phone] Josefina Reeder APRN, C.N.P. Preventive Gynecological Exam (Primary Dx); Abuse Tobacco Smoking; Aneurysm Abdominal Aortic Family History; Counseling Preconception; Mass Ovary; Ulcerative Colitis Unspecified Without Complications (HCC) Discharge Disposition: Home or Self Care 04/27/2025 8:54 AM CDT - 04/27/2025 11:59 PM CDT Hospital Encounter Department of Laboratory Medicine in [place], [place] [address] [place] [address] Marcello Turpin M.D. Elevated Liver Enzyme Test Discharge Disposition: Home or Self Care 04/27/2025 8:20 AM CDT Office Visit Department of Family Medicine, [facility], in [place], [place] [address] [place] [address] Marcello Turpin M.D. Preventive Gynecological Exam (Primary Dx); Asthma Mild Intermittent (HCC); Borderline Personality Disorder (HCC); Ulcerative Colitis Unspecified Without Complications (HCC); Elevated Liver Enzyme Test; Pain Neck; Dermatofibroma; Milia; Acne Vulgaris; Maintenance Health Adult 04/27/2025 Results Follow-Up Department of Family Medicine, [facility], in [place], [place] [address] [place] [address] Kenia Mora R.N. Comprehensive Metabolic Panel from Last 3 Months Immunizations Immunization Administration Dates Next Due DTaP (Infanrix, Tripedia) 02/12/1992,,04/01/1987,1986,1986 HepB Adult (HEPLISAV-B) 06/09/2024 HepB, Unspecified 06/21/2001 MMR 11/26/1998,12/23/1987 MMRV 11/29/1998 Polio, Unspecified 02/12/1992, 8,04/01/1987,1986,1986 Td (Adult), adsorbed 11/29/1998 Tdap 04/10/2020,08/20/2010 influenza trivalent vaccine (6 months and older)(PF) 06/04/2025 Family History Medical History Relation Name Comments Aortic aneurysm Maternal Grandmother Aortic aneurysm Mother peggy melo Aortic dissection Mother peggy melo Coronary artery disease Mother peggy melo Diabetes Mother peggy melo Hyperlipidemia (high cholesterol) Mother peggy melo Hypertension Mother peggy melo Kidney disease Mother peggy melo Osteoporosis Mother peggy melo Endometrial cancer Mother's Sister Aunt kathleen Breast cancer (in one breast) Other Cervical cancer Other Endometrial cancer Sister [address] sohail Ulcerative colitis Sister [address] Relation Name Status Comments Father Clete Alive Maternal Grandmother Mother peggy melo Mother's Sister Aunt kathleen Other Half Sister Sister 1 sohail Sister 2 Alive Social History Tobacco Use Types Packs/Day Years [...] things needed for daily living? No 04/23/2025 [facility] Utilities Answer Date Recorded In the past 12 months has [facility] [employer], gas, oil, or water [employer] threatened to shut off services in your home? No 04/23/2025 Housing Stability Answer Date Recorded What is your living situation today? I have a [facility] place to live 04/23/2025 Education Answer Date Recorded What is the highest level of school you have completed or the highest degree you have received? GED or equivalent Comments No Sex and Gender Information Value Date Recorded Sex Assigned at Female 04/24/2021 8:16 PM CDT Legal Sex Female 7:45 AM COPPER PLATE LITHOGRAPHER Gender Identity Female 10/16/2020 5:31 PM COPPER PLATE LITHOGRAPHER Sexual Orientation Straight 10/16/2020 5: 31 PM COPPER PLATE LITHOGRAPHER Last Filed Vital Signs Vital Sign Reading Time Taken Comments Blood Pressure 119/80 06/04/2025 3:40 PM CDT Pulse 75 06/04/2025 3:40 PM CDT Temperature 36.6 C (97.9 F) 04/27/2025 8:18 AM CDT Respiratory Rate 18 04/27/2025 8:18 AM CDT Oxygen Saturation 97% 05/01/2020 9:15 AM CDT Inhaled Oxygen Concentration - - Weight 70 kg (154 lb 5.2 oz) 06/04/2025 3:40 PM CDT Height 159 cm (5' 2.6) 04/27/2025 8:18 AM CDT Body Mass Index 27.69 04/27/2025 8:18 AM CDT Plan of Treatment Health Maintenance Due Date Last Done Comments Pneumococcal vaccine (0-49 y ears) (1 of 2 - PCV) 2005 HPV Vaccines (1 - 3-dose SCD M series) 2013 Hepatitis B Vaccines (3 of 3 - 3-dose series) 08/04/2024 06/09/2024, 06/21/2001 COVID-19 Vaccine ( - 2024-2 6 season) 2025 Asthma Action Plan 04/27/2025 Asthma Control Test Questionnaire 04/27/2025 Asthma Management/Exacerbati on Questionnaire (AMQ/AEQ) 04/27/2025 Tobacco Cessation counseling 06/09/2025 06/09/2024 Cervical/Vaginal Cancer Screening 07/29/2028 07/29/2023, 07/29/2023, 06/14/2019, Additional history exists Lipid (Cholesterol) Screening 06/09/2029 06/09/2024 DTaP,Tdap,and Td Vaccines (8 - Td or Tdap) 04/10/2030 04/10/2020, 08/20/2010, 11/29/1998, Additional history exists IPV Vaccines Completed 02/12/1992, 03/10, 04/01/1987, Additional history exists HIV Screening Completed 07/20/2019, 07/09, 11/18/2011 Hepatitis B Screening Discontinued 06/27/2024, 019 Hepatitis C Screening Completed 06/27/2024 Depression Screening (Annual PHQ-2) Completed 06/04/2025 Influenza Vaccine Completed 06/04/2025 Medical Devices Implanted Type Area Dewaxer Device Identifier Shelf Expiration Date Model / Serial / Lot Orthopedic Other Orthopedic Other Left: Femur Description:screw and ruth in Left femur Procedures Procedure Name Priority Date/Time Associated Diagnosis Comments US PELVIS TRANSVAGINAL AND TRANSABDOMINAL RAD - Routine (most inpatients and all outpatients) 06/07/2025 1:20 PM CDT Counseling Preconception Mass Ovary ASHLEY SCORE Routine 06/04/2025 4:33 PM CDT Counseling Preconception Mass Ovary CHLAMYDIA/GONORRHOEA E AMPLIFIED RNA Routine 06/04/2025 4:16 PM CDT Preventive Gynecological Exam COMPREHENSIVE METABOLIC PANEL, S/P Routine 04/27/2025 9:01 AM CDT Elevated Liver Enzyme Test HCV AB SCRN W/REFLEX TO HCV PCR, S Routine 06/27/2024 4:01 PM COPPER PLATE LITHOGRAPHER Elevated Liver Enzyme Test HEPATITIS B SURFACE ANTIGEN Routine 06/27/2024 4:01 PM COPPER PLATE LITHOGRAPHER Elevated Liver Enzyme Test LIPID PANEL, S Routine 06/09/2024 1:24 PM CDT Well Adult Examination Normal HPV WITH GENOTYPING, PCR, THINPREP Routine 07/29/2023 3:37 PM COPPER PLATE LITHOGRAPHER HXZZORDERS Routine 07/25/2012 10:00 AM COPPER PLATE LITHOGRAPHER from Last 3 Months or Most Recently Relevant to Health Maintenance Results * US Pelvis Transvaginal and Transabdominal [...] C.N.P. IMG US PROCEDURES Final Result * Westfir Score (Ovarian Malignancy Risk Algorithm) (06/04/2025 4:33 PM CDT) HE4,S 43 <=140 pmol/L 06/05/2025 8:47 AM CDT [facility] Cancer Ag 125 (CA 125), S 19 <46 U/mL 06/05/2025 8:47 AM CDT [facility] Risk Score, if premenopausal 0.54 06/05/2025 8:47 AM CDT [facility] Comment: In premenopausal women a ASHLEY value > or = 1.14 indicates a high risk of finding epithelial ovarian cancer whereas a ASHLEY value < 1.14 indicates a low risk of finding epithelial ovarian cancer at surgery. ----REFERENCE VALUE---- Premenopausal: < 1.14 (low risk) = or > 1.14 (high risk) Risk Score, if postmenopausal 1.17 06/05/2025 8:47 AM CDT [facility] Comment: In postmenopausal women a ASHLEY value [...] APRN, C.N.P. LAB BLOOD ADD-ON Final Result [facility] [address] [place] [address] [facility] [address] [place] [address] * Chlamydia / Gonorrhoeae Amplified RNA (06/04/2025 [...] LAB MICROBIOLOGY - GENERAL ORDERABLES Final Result [facility] [address] [place] [address], [facility] [address] [facility] [address] [place] [address] * (ABNORMAL) Comprehensive Metabolic Panel (04/27/2025 9:01 [...] M.D. LAB BLOOD ADD-ON Final Resul t Performing Organization Address [facility]/ZIP Co de Phone Number [facility] [address] [place] [address], [facility] OWAT [facility] in [place] [address] [place] [id number] * HCV Ab Scrn w/Reflex to HCV PCR, Serum (06/27/2024 4:01 PM COPPER PLATE LITHOGRAPHER) HCV Ab Screen, S Negative Negative 06/27/2024 7:26 PM COPPER PLATE LITHOGRAPHER TO Blood (Blood, Venous) 06/27/2024 4:01 PM COPPER PLATE LITHOGRAPHER 06/27/2024 6:57 PM COPPER PLATE LITHOGRAPHER Narrative [facility] - 06/27/2024 7:26 PM COPPER PLATE LITHOGRAPHER Specimen Information: Specimen ID: [id number] Specimen Type: Blood Specimen Collection Start Date: 06/27/2024 4:01 PM Specimen Received Date: 06/27/2024 6:57 PM Specimen ID: [id number] Specimen Type: Blood Specimen Collection Start Date: 06/27/2024 4:01 PM Specimen Received Date: 06/27/2024 7:00 PM us Marcello Turpin M.D. LAB MICROBIOLOGY - BLOOD ORD ERABLES Final Result Performing Organization Address City/[facility]/ZIP Co de Phone Number [facility] [place] [address], [facility] [employer] [address] [place] [id number] * Hepatitis B Surface Antigen (06/27/2024 4:01 PM COPPER PLATE LITHOGRAPHER) HBs Antigen, S Nonreactive Nonreactive 06/27/2024 10:17 PM COPPER PLATE LITHOGRAPHER AUST Blood (Blood, Venous) 06/27/2024 4:01 PM COPPER PLATE LITHOGRAPHER 06/27/2024 9:37 PM COPPER PLATE LITHOGRAPHER Marcello Turpin M.D. LAB MICROBIOLOGY - BLOOD ORD ERABLES Final Result [facility] [address] [place] [address], [facility] [address] [place] [address] * (ABNORMAL) Lipid Panel (06/09/2024 1:24 PM CDT) Triglycerides 191(H) mg/dL 06/09/2024 6:38 PM CDT [facility] Comment: ----REFERENCE VALUE---- Normal: <150 mg/dL Borderline High: 150-199 mg/dL High: 200-499 mg/dL Very High: > or =500 mg/dL Cholesterol, Total 143 mg/dL 2023 6:38 PM CDT [facility] Comment: ----REFERENCE VALUE---- Desirable: < 200 mg/dL Borderline High: 200 - 239 mg/dL High: > or = 240 mg/dL Cholesterol, LDL, Calculated 72 mg/dL 06/09/2024 6:38 PM CDT [facility] Comment: ----REFERENCE VALUE---- Desirable: <100 mg/dL Above Desirable: 100-129 mg/dL Borderline High: 130-159 mg/dL High: 160-189 mg/dL Very High: >=190 mg/dL ----ADDITIONAL INFORMATION---- LDL cholesterol calculated using the Zheng/NIH equation. Cholesterol, HDL 39(L) >=50 mg/dL 06/09/20 6:38 PM CDT [facility] Cholesterol, Non-HDL, Calculated 104 mg/dL 06/09/2024 6:38 PM CDT [facility] Comment: ----REFERENCE VALUE---- Desirable: <130 mg/dL Above Desirable: 130-159 mg/dL Borderline High: 160-189 mg/dL High: 190-219 mg/dL Very High: > or =220 mg/dL Fasting (8 HR or more) No 06/09/2024 1:24 PM CDT [facility] Blood (Blood, Venous) 06/09/2024 1:24 PM CDT 06/09/2024 5:57 PM CDT us Marcello Turpin M.D. LAB BLOOD ADD-ON Final Resul t Performing Organization Address City/[facility]/ZIP Co de Phone Number [facility] [address] [place] [address], [facility] OWAT [facility] in [place] [address] [place] [address] * HPV with Genotyping, PCR, ThinPrep (07/29/2023 3:37 PM COPPER PLATE LITHOGRAPHER) Pathologist [facility] HPV with Genotyping, ThinPrep, PCR Negative Negative 07/30/2023 3:48 PM COPPER PLATE LITHOGRAPHER [facility] Comment: Negative for high risk HPV by nucleic acid amplification. The following high risk HPV types were not detected: 16, 18, 31, 33, 35, 39, 45, 51, 52, 56, 58, 59, 66, and 68 This result does not rule out HPV in the patient, as the sensitivity of the test depends on the timing of the specimen collection and the quality of the specimen. Result should be correlated with patient's history, clinical presentation, and CREMATOR cytology report. 07/29/2023 3:37 PM COPPER PLATE LITHOGRAPHER 07/30/2023 7:04 AM COPPER PLATE LITHOGRAPHER us Josefina Reeder APRN, C.N.P. LAB MICROBIOLOGY - GENERAL ORDERABLES Final Result [facility] [address] [place] [address], [place] [facility] [address] [address] * HXZZORDERS (07/25/2012 10:00 AM COPPER PLATE LITHOGRAPHER) HIV-1/-2 Antibody Negative Negative [facility] Comment: Negative result does not rule out HIV infection. If acute HIV-1 infection is suspected in a high-risk patient, submit plasma specimen for HIV-1 RNA quantification test. If this test is ordered as a follow-up test to a reactive rapid HIV antibody test result, supplemental testing by Western blot is recommended, even when this test result is negative. Testing is performed using the [employer] Vitros Anti-HIV 1+2 chemiluminescence immunoassay. Test Performed by: [address] [address] Consumer Sales Representative: Lukas Orellana III, M.D. Blood 07/25/2012 10:0 0 AM COPPER PLATE LITHOGRAPHER Bentley Manuel M.D. LAB HISTORICAL ORDERS Final Re sult POWERCHART from Last 3 Months or Most Recently Relevant to Health Maintenance Insurance [address] JUD[place] Rodriguez [id number] [employer] DARINJUDITH [id number] Care Teams Establishment Guide Relationship Specialty Start Date End Date Marcello Turpin M.D. [address] [place] [address] BaileyJUDITH bañuelos [phone] PCP - General Family Medicine 12/07/22
--- OUTSIDE RECORDS SUMMARY | 2025-06-08 16:41 | XMS_ITS | Encounter Summary ---
Author Organization [facility] Address [address] [place] [address] Support Name Relationship Address Phone Lalo Biswas Emergency Contact [address] [place] [address] Clesherron Gomez Personal Relationship [address] [place] [address] Care Team Providers Care Corporate Affairs Manager Name Role Phone Marcello Turpin M.D. Primary Care Provider Encounter Details Date Type Department Care Team (Late st Contact Info) Description 06/05/2025 Results Follow-Up Department of Obstetrics and Gynecology in [place], [place] [address] [place] [phone] Josefina Reeder, [employer] MAKER, C.N.P. [address] [place] [phone] Chlamydia / Gonorrhoeae Amplified RNA, Angela Score (Ovarian Malignancy Risk Algorithm) Social History Tobacco Use Types Packs/Day Years [...] things needed for daily living? No 04/23/2025 [facility] Utilities Answer Date Recorded In the past 12 months has [employer], gas, oil, or water company threatened to shut off services in your home? No 04/23/2025 Housing Stability Answer Date Recorded What is your living situation today? I have a [facility] place to live 04/23/2025 Education Answer Date Recorded What is the highest level of school you have completed or the highest degree you have received? GED or equivalent Comments No Sex and Gender Information Value Date Recorded Sex Assigned at Female 04/24/2021 8:16 PM CDT Legal Sex Female 7:[address]WAY ATTENDANT Gender Identity Female 10/16/2020 5:[address] ATTENDANT Sexual Orientation Straight 10/16/2020 5: [address] ATTENDANT documented as of this encounter Plan of Treatment Not on file documented as of this encounter Visit Diagnoses Not on filedocumented in this encounter Additional Health Concerns Assessment Noted Time PHQ-9 Depression Total Score: 19 017 10:[address] ATTENDANT documented as of this encounter Care Teams Corporate Affairs Manager Relationship Specialty Start Date End Date Marcello Turpin M.D. [address] [place] [address] Sandy Rodriguez, JUDITH [phone] PCP - General Family Medicine 12/07/22 documented as of this encounter
[2025-06-08 16:42] VITALS: BP 131/58; PULSE 69; RESP 18; TEMP 36.9; O2SAT 100; BMI 24.0
--- NOTE | 2025-06-08 16:54 | ED.GENADULT ---
HPI - General Adult General Chief complaint: Shoulder Injury/Pain Stated complaint: L shoulder/neck pain Time Seen by Provider: 06/08/25 16:54 History of Present Illness HPI narrative: Patient presents to the emergency department complaining of right shoulder pain. Patient states she started to experience shoulder pain on wednesday. Patient has been having neck pain for about 3 months that has not improved. Pain is exacerbated by movement of her extremity. Patient has been attending physical therapy a couple of times . 39-year-old woman presenting to the emergency department with concern of right shoulder pain. This began flaring about a week ago. She has been struggling with neck pain for about 3 months. Has attended physical therapy. She has not received any diagnosis to date including having gone to a chiropractor. Intermittently will feel particularly achy into her fingertips are her feet or extremities otherwise. She has not had any weakness. There was never any trauma. She is right handed. initially passed off some of these discomfort to stress and now with new symptoms are continuing. He notes how recently she had just swelling in the right lower neck demonstrates some swelling about racquet ball sized. Sounds like it was in the area of the medial trapezius. Does not have radiating symptoms otherwise though into her arms or legs. No significant headaches. No rashes. No fevers. She has been sleeping poorly her notes as well. Tossing from side to side. Did receive cyclobenzaprine from primary with minimal effect. Related Data Home Medications ?Medication ?Instructions ?Recorded ?Confirmed cyclobenzaprine 10 mg tablet 10 mg PO QPM 06/08/25 06/08/25 tretinoin 0.025 % topical cream applic topical QPM 06/08/25 Allergies Allergy/AdvReac Type Severity Reaction Status Date / Time strawberry Allergy Severe Verified 06/08/25 16:49 tuberculin, purified protein Allergy Verified 06/08/25 16:49 deriva Review of Systems Status of ROS: Reports: 6 or more systems reviewed and unremarkable except as noted in History and below [facility] Social History Smoking Status: Never smoker Do you use any of these nicotine containing products: Vaping Products How often do you have a drink containing alcohol: never AUDIT-C Alcohol total score: 0 Non-prescribed substance use: denies use Exam Narrative: Exam Narrative: Does appear to be somewhat puffy about the right shoulder. No soreness the subacromial bursa to palpation. With internal rotation the right shoulder she has pain across the anterior aspect of shoulder. Appears to have some weakness which I think is more related to pain with empty can testing. No weakness to resisted external rotation or of resisted internal rotation. Pain is elicited with more when attempting to reach up her back. Subjective pain in the left side of her neck when rotating to her left. Neck generally seems supple with good range of motion. Spurling's test is negative. She is with General swelling/tension/fullness in the right trapezial musculature. Const: Vital Signs, click to edit/add: Vital Signs - 24 hr 06/08/25 16:42 Temperature 98.4 F Pulse Rate [Right Pulse Oximeter] 69 Respiratory Rate 18 Blood Pressure [Ri ght Upper Arm] 131/58 L Pulse Oximetry 100 Oxygen Delivery Me thod Room Air Documenting provider has reviewed patient's vital signs: yes Course Vital Signs Vital signs: Initial Vital Signs Temperature 98.4 F 06/08/25 16:42 Temperature Source Temporal Artery Scan 06/08/25 16:42 Pulse Rate 69 06/08/25 16:42 Pulse Rhythm Regular 06/08/25 16:42 Pulse Strength 3+ Normal 06/08/25 16:42 Respiratory Rate 18 06/08/25 16:42 Blood Pressure 131/58 L 06/08/25 16:42 Blood Pressure Mean 82 06/08/25 16:42 Blood Pressure Position Sitting 06/08/25 16:42 Pulse Oximetry 100 06/08/25 16:42 Oxygen Delivery Method Room Air 06/08/25 16:42 Vital Signs Temperature 98.4 F 06/08/25 16:42 Pulse Rate 69 06/08/25 16:42 Respiratory Rate 18 06/08/25 16:42 Blood Pressure 131/58 L 06/08/25 16:42 Pulse Oximetry 100 06/08/25 16:42 Oxygen Delivery Method Room Air 06/08/25 16:42 Temperature 98.5 F 06/08/25 19:40 Pulse Rate 68 06/08/25 19:40 Respiratory Rate 18 06/08/25 19:40 Blood Pressure 112/83 06/08/25 19:40 Pulse Oximetry 100 06/08/25 19:40 Oxygen Delivery Method Room Air 06/08/25 19:40 Medical Decision Making MDM Narrative Medical decision making narrative: Not sure what to make of these extremity symptoms. Can be present for 1 week and not the next. Does not describe typical symptoms for MS and seems atypical for Guillain-[place]. Does not seem to be demonstrating infectious etiology. Has not had a migrating polyarthralgia nor significant headache. I think the neck discomfort that she has been struggling with represents some facet impingements and secondary muscle spasm which probably cleared bleed to some general achiness. She has been sleeping poorly her notes as well. Tossing from side to side. Think part of this evaluation would include shoulder x-ray looking for some aggravating spur or other lesion. Shoulder does appear to be properly located. Check standard labs also looking for evidence of infection, inflammatory markers. Three views of the right shoulder independently reviewed by me looks unremarkable. Labs are normal. Returned to reexamine. In addition to the muscle tension, on reexamination now I feel there is more tenderness reproduced under the acromion process. May well have developed a subacromial bursitis for some reason. Without follow-up, hesitating to place steroid here but might be helpful to know if she can get some release of a discomfort at least with an anesthetic. She would like to proceed with this and so I did inject 5 mL of is a 0.25% bupivacaine into the subacromial bursa with a lateral approach. Fairly prompt improvement in her symptoms with increased mobility of the shoulder with less pain. Offered to inject some of the musculature in the area as well but she deferred. Muscle spasm is likely related to the inflammation has been going on in her shoulder/subacromial bursa. Dispensed a soft collar as I think that will help some of the muscles relax. See patient discharge plan for further discussion Congratulations on your nuptials! :) Wear the soft collar for comfort over this next week. Wear this arm sling more over the next couple of days and then just as needed for comfort over this coming week. Do take your arm out of it to move it around a little. Over the next 5 days I would like you to take 400-600 mg of ibuprofen 3 times daily maybe with a little food or 375 mg of naproxen twice daily. Otherwise can take up to 1000 mg of acetaminophen per dose. I would call to reschedule in primary care or with Orthopedics phone number [phone] with consideration for re-examination and possible steroid injection in your shoulder unless you are feeling much better. See handout on exercises/rehab specifically for your shoulder. As discussed, prescribing opiate pain medicine needed -- some Percocet from [facility]. Tablet contains 5 mg of oxycodone and 325 mg of acetaminophen. Medical Records Medical records reviewed: Yes I reviewed the patient's medical records Lab Data Lab results reviewed: Yes I reviewed the patient's lab results Labs: Lab Results 06/08/25 Range/Units 17:44 WBC 6.51 (4.50-11.00) K/uL RBC 4.56 (4.00-5.20) m/uL Hgb 12.8 (12.0-16.0) gm/dL Hct 38.3 (33.0-51.0) % MCV 84 (80-100) fL MCH 28 (26-34) pg MCHC 33 (32-36) gm/dL RDW Coeff of Gwendolyn 12.4 (11.5-15.5) % Plt Count 247 (140-440) K/uL Neut % (Auto) 50.5 (42.0-72.0) % Lymph % (Auto) 34.9 (20-44) % [place] % (Auto) 7.7 (0.0-11.0) % Eos % (Auto) 4.5 (0.0-7.0) % Baso % (Auto) 0.6 (0.0-3.0) % Neut # (Auto) 3.29 (1.7-7.0) K/uL Lymph # (Auto) 2.27 (0.90-2.90) K/uL [place] # (Auto) 0.50 (0.00-0.90) K/UL Eos # (Auto) 0.29 (0.00-0.50) K/uL Baso # (Auto) 0.04 (0.00-0.30) K/uL Abs Immat Gran (auto) 0.12 (0.00-0.30) K/uL Imm/Tot Granulo (auto) 1.8 % ESR 11 (2-20) mm/hr Sodium 137 (135-149) mmol/L Potassium 3.9 (3.6-5.1) mmol/L Chloride 105 (96-114) mmol/L Carbon Dioxide 26 (20-32) mmol/L Anion Gap 6 L (7-15) mEq/L BUN 11 (5-24) mg/dL Creatinine 0.8 (0.5-1.5) mg/dL Estimated Creat Clear 75.41 Estimated GFR 97 ml/min Glucose 103 (60-115) mg/dL Calcium 9.2 (8.4-10.6) mg/dL C-Reactive Protein < 0.5 L (0.5-1.0) mg/dL Discharge Plan Discharge Clinical Impression: Subacromial bursitis, Muscle spasm Patient Disposition: Home w/ Parent or Adult Condition: Improved Additional Instructions: Congratulations on your nuptials! :) Wear the soft collar for comfort over this next week. Wear this arm sling more over the next couple of days and then just as needed for comfort over this coming week. Do take your arm out of it to move it around a little. Over the next 5 days I would like you to take 400-600 mg of ibuprofen 3 times daily maybe with a little food or 375 mg of naproxen twice daily. Otherwise can take up to 1000 mg of acetaminophen per dose. I would call to reschedule in primary care or with Orthopedics phone number [phone] with consideration for re-examination and possible steroid injection in your shoulder unless you are feeling much better. See handout on exercises/rehab specifically for your shoulder. As discussed, prescribing opiate pain medicine needed -- some Percocet from [facility]. Tablet contains 5 mg of oxycodone and 325 mg of acetaminophen. Prescriptions: No Action cyclobenzaprine 10 mg tablet 10 mg PO QPM tretinoin 0.025 % cream topical QPM Follow Up/Referrals: Vlad Ngo MD [Staff Physician, Family Practice] Stand Alone Forms: isocket Info Instructions
--- NOTE | 2025-06-08 17:13 | CRLHL7_ITS ---
For Patients: As a result of the Cures Act, medical imaging exams and procedure reports are released immediately into your electronic medical record. You may view this report before your referring provider. If you have questions, please contact your health care provider. Indication: Shoulder pain. Technique: Three views of the right shoulder. Comparison: None. Findings: No fracture or dislocation. The glenohumeral and acromioclavicular joint are preserved. Dictated by Sonny Martin MD @ 06/08/2025 5:48:16 PM (Electronically Signed)
[2025-06-08 17:52] LABS: Hematocrit* 38.3 % (33.0-51.0); Hemoglobin* 12.8 gm/dL (12.0-16.0); Immature Granulocytes Abs Auto 0.12 K/uL (0.00-0.30); Immature Granulocytes Pct Auto 1.8 %; Lymphocytes Absolute Auto 2.27 K/uL (0.90-2.90); Mean Corpuscular HGB Conc 33 gm/dL (32-36); Mean Corpuscular Hemoglobin 28 pg (26-34); Mean Corpuscular Volume 84 fL (80-100); RDW Coefficient of Variation % 12.4 % (11.5-15.5); Red Blood Count* 4.56 m/uL (4.00-5.20); White Blood Count* 6.51 K/uL (4.50-11.00)
[2025-06-08 17:53] LABS: Slide Review Reflex No
[2025-06-08 18:05] LABS: Chloride* 105 mmol/L (96-114); Potassium* 3.9 mmol/L (3.6-5.1); Sodium* 137 mmol/L (135-149)
[2025-06-08 18:08] LABS: Blood Urea Nitrogen* 11 mg/dL (5-24); Creatinine* 0.8 mg/dL (0.5-1.5); Est. Creatinine Clearance* 75.41; Estimated Glomerular Filt Rate 97 ml/min
[2025-06-08 18:09] LABS: Anion Gap 6 mEq/L (7-15); Calcium* 9.2 mg/dL (8.4-10.6); Carbon Dioxide* 26 mmol/L (20-32); Glucose* 103 mg/dL (60-115)
[2025-06-08 18:34] LABS: Erythrocyte SedimentationRate* 11 mm/hr (2-20)
[2025-06-08 19:40] VITALS: BP 112/83; PULSE 68; RESP 18; TEMP 36.9; O2SAT 100
== END 2025-06-08 19:46 | disposition home or self-care (01) ==
PROVIDERS: Emergency Provider Family Medicine
DX: M75.52 Bursitis of left shoulder (principal); M62.838 Other muscle spasm
CPT/HCPCS: 36415; 73030; 80048; 85025; 85651; 86140; 99284